=== PATIENT | female | born 1995 | race Hispanic/Latino ===

== ENCOUNTER 2021-06-15 08:42 | Outpatient (CLI) | payer BC ==
[2021-06-16 00:47] LABS: SARS-CoV-2 PCR by NAA Not Detected (NotDetected)
== END 2021-06-15 08:43 | disposition home or self-care (01) ==
LOC: CSHLAB 08:42
PROVIDERS: ATTEND Student in an Organized Health Care Education/Training Program
DX: Z20.822 Contact with and (suspected) exposure to COVID-19 (principal)
CPT/HCPCS: U0003; U0005

== ENCOUNTER 2021-06-16 19:30 | Inpatient (IN) | payer BC ==
[~2021-06-16 19:30] MED LIST: Bupivacaine 0.25% HCL 30 ML VIAL ONE; Bupivacaine 0.5% 10 ML VIAL ONE
[2021-06-16] MEDS ORDERED: Misoprostol 200 MCG TAB PR PRN (23:21)
[2021-06-16] MEDS ORDERED: Acetaminophen 500 MG TAB PO PRN (23:21)
[2021-06-16] MEDS ORDERED: Methylergonovine 0.2 MG/ML VIAL IM PRN (23:21)
[2021-06-16] MEDS ORDERED: NS w/ Oxytocin 30 units 500 ML IV SCH ×2 (23:21)
[2021-06-16] MEDS ORDERED: hydrALAZINE 20 MG/ML VIAL SLOW IVP PRN (23:21)
[2021-06-16] MEDS ORDERED: Lidocaine 1% (PF) 30 ML VIAL SC PRN (23:21)
[2021-06-16] MEDS ORDERED: Carboprost 250 MCG/ML AMP IM PRN (23:21)
[2021-06-16] MEDS ORDERED: Lactated Ringer's 1,000 ML IV SCH (23:21)
[2021-06-16] MEDS ORDERED: Ibuprofen 800 MG TAB PO PRN (23:21)
[2021-06-16] MEDS ORDERED: HYDROcodone/Acetaminophen 5/325 mg Tablet PO PRN (23:21)
[2021-06-16] MEDS ORDERED: Ondansetron PF 4 MG/2 ML Vial IVP PRN (23:21)
[2021-06-16] MEDS ORDERED: Fentanyl 100 MCG/2 ML VIAL SLOW IVP PRN (23:21)
[2021-06-16] MEDS ORDERED: Diphenoxylate HCl/Atropine Tablet PO PRN (23:21)
[2021-06-16] MEDS ORDERED: Promethazine HCl 25 MG/ML VIAL IM PRN (23:21)
[2021-06-17] MEDS ORDERED: Misoprostol 100 MCG TAB ONE (00:53)
[2021-06-17 00:59] VITALS: BMI 28.1
[2021-06-17] MEDS: Misoprostol 100 MCG TAB VAG SCH (01:07)
[2021-06-17 01:16] LABS: Hemoglobin 13.2 g/dL (12.0-15.5); Mean Corpuscular HGB CONC 35.3 g/dL (32.0-36.0); Mean Corpuscular Hemoglobin 31.3 pg (27.0-33.0); Mean Corpuscular Volume 88.6 fl (81.6-98.3); Mean Platelet Volume 9.7 fl (7.4-10.4); Platelet Count 275 10x3/uL (150-450); RBC Distribution Width 12.5 % (11.5-14.5); Red Blood Cell (RBC) Count 4.22 10x6/uL (3.90-5.03); White Blood Cell (WBC) Count 10.1 10x3/uL (3.5-10.5)
[2021-06-17 01:50] LABS: Syphilis Antibody Nonreactive (Nonreactive); Syphilis Antibody Index 0.04 S/CO (<1.00 Non-Reactive)
[2021-06-17 01:52] LABS: Hep B Surf Ag Non-Reactive S/CO (NonReactive)
[2021-06-17 02:27] LABS: HBSAg Index 0.17 S/CO (0-0.99)
[2021-06-17] MEDS ORDERED: Fentanyl 2 mcg/Bup 0.1% Cadd 100 ML ONE (07:58)
[2021-06-17] MEDS ORDERED: Naloxone HCl 0.4 mg/ml Vial IVP PRN ×2 (09:08)
[2021-06-17] MEDS ORDERED: Acetaminophen 325 MG TAB PO PRN (09:08)
[2021-06-17] MEDS ORDERED: Moisturizing Cream (Eucerin) 113 GM JAR TOP PRN (09:08)
[2021-06-17] MEDS ORDERED: ePHEDrine Sulfate 50 MG/10 ML VIAL SLOW IVP PRN (09:08)
[2021-06-17] MEDS ORDERED: diphenhydrAMINE 50 MG/ML VIAL IVP PRN (09:08)
[2021-06-17] MEDS ORDERED: Lactated Ringer's 500 ML IV PRN (09:08)
[2021-06-17] MEDS ORDERED: Promethazine HCl 25 MG/ML VIAL IM PRN ×2 (09:08→17:48)
[2021-06-17] MEDS ORDERED: Ondansetron PF 4 MG/2 ML Vial IVP PRN ×2 (09:08→17:48)
[2021-06-17] MEDS ORDERED: Communication Order-Pharmacy FS SCH (09:15)
[2021-06-17] MEDS ORDERED: Fentanyl 2 mcg/Bupivacaine 0.1% Cassette 100 ML EPIDURAL SCH (09:15)
[2021-06-17] MEDS ORDERED: Lidocaine 1% (PF) 30 ML VIAL ONE ×4 (16:07→16:11)
[2021-06-17] MEDS ORDERED: Tranexamic Acid 1,000 MG/10 ML VIAL ONE ×2 (16:44→18:20)
[2021-06-17] MEDS ORDERED: Carboprost 250 MCG/ML AMP ONE (17:09)
[2021-06-17] MEDS ORDERED: Benzocaine-Menthol 82.5 ML CAN TOP PRN (17:48)
[2021-06-17] MEDS ORDERED: Lanolin Ointment 7 GM TUBE TOP PRN (17:48)
[2021-06-17] MEDS ORDERED: Preparation H Ointment 28 GM TUBE PR PRN (17:48)
[2021-06-17] MEDS ORDERED: diphenhydrAMINE 25 MG CAP PO PRN (17:48)
[2021-06-17] MEDS ORDERED: NS w/ Oxytocin 30 units 500 ML IV SCH (17:48)
[2021-06-17] MEDS ORDERED: Bisacodyl 10 MG SUPP PR PRN (17:48)
[2021-06-17] MEDS ORDERED: hydrALAZINE 20 MG/ML VIAL SLOW IVP PRN (17:48)
[2021-06-17] MEDS ORDERED: Boostrix 0.5 ML (Tdap) VIAL IM ONE (17:48)
[2021-06-17] MEDS ORDERED: Fentanyl 100 MCG/2 ML VIAL SLOW IVP PRN (17:48)
[2021-06-17] MEDS ORDERED: HYDROcodone/Acetaminophen 5/325 mg Tablet PO PRN (17:48)
[2021-06-17] MEDS ORDERED: Milk Of Magnesia 30 ML UDCUP PO PRN (17:48)
[2021-06-17 18:44] LABS: Hemoglobin 12.7 g/dL (12.0-15.5)
[2021-06-17] MEDS ORDERED: Diphenoxylate HCl/Atropine Tablet PO SCH (18:45)
[2021-06-17 18:58] LABS: D-Dimer Test 4.54 mg/L FEU (0.19-0.50); INR-International Normal Ratio 0.9; Prothrombin Time 9.8 sec (9.5-12.1)
[2021-06-17] MEDS: Methylergonovine 0.2 MG TAB PO SCH (19:32)
[2021-06-17] MEDS: Ibuprofen 800 MG TAB PO SCH (21:03)
[2021-06-17] MEDS: ceFAZolin Sodium/D5W 2 GM in Premix Bag 1 BAG IVPB SCH (22:24)
[2021-06-18] MEDS: Methylergonovine 0.2 MG TAB PO SCH ×3 (01:05→20:48)
[2021-06-18] MEDS: Docusate 100 MG CAP PO SCH ×3 (02:56→21:37)
[2021-06-18] MEDS: Tranexamic Acid 1,000 MG in Sodium Chloride 0.9% 100 ML IVPB SCH ×3 (02:59→20:48)
[2021-06-18] MEDS: HYDROcodone/Acetaminophen 5/325 mg Tablet PO PRN ×3 (04:03→17:28)
[2021-06-18 05:52] LABS: Hemoglobin 11.2 g/dL (12.0-15.5); Mean Corpuscular Hemoglobin 31.2 pg (27.0-33.0); Mean Corpuscular Volume 89.1 fl (81.6-98.3); Mean Platelet Volume 9.8 fl (7.4-10.4); Platelet Count 225 10x3/uL (150-450); RBC Distribution Width 12.5 % (11.5-14.5); Red Blood Cell (RBC) Count 3.59 10x6/uL (3.90-5.03); White Blood Cell (WBC) Count 17.5 10x3/uL (3.5-10.5)
[2021-06-18] MEDS: Ibuprofen 800 MG TAB PO SCH ×4 (06:21→21:38)
[2021-06-18] MEDS: ceFAZolin Sodium/D5W 2 GM in Premix Bag 1 BAG IVPB SCH ×2 (06:22→20:48)
[2021-06-18] MEDS ORDERED: Butorphanol Tartrate 1 MG/ML VIAL ONE (06:25)
[2021-06-18] MEDS: Prenatal Vitamin 1 TAB PO SCH (15:30)
[2021-06-18] MEDS: Ferrous Sulfate 325 MG TAB PO SCH ×2 (15:30→17:30)
[2021-06-18] MEDS: Misoprostol 100 MCG TAB VAG SCH (20:47)
[2021-06-19 05:07] LABS: Hemoglobin 9.9 g/dL (12.0-15.5); Mean Corpuscular HGB CONC 33.8 g/dL (32.0-36.0); Mean Corpuscular Hemoglobin 31.1 pg (27.0-33.0); Mean Corpuscular Volume 92.1 fl (81.6-98.3); Mean Platelet Volume 9.6 fl (7.4-10.4); Platelet Count 242 10x3/uL (150-450); RBC Distribution Width 12.6 % (11.5-14.5); Red Blood Cell (RBC) Count 3.18 10x6/uL (3.90-5.03)
[2021-06-19] MEDS: Ibuprofen 800 MG TAB PO SCH (06:02)
[2021-06-19] MEDS: Prenatal Vitamin 1 TAB PO SCH (08:42)
[2021-06-19] MEDS: Docusate 100 MG CAP PO SCH (08:42)
[2021-06-19] MEDS: Ferrous Sulfate 325 MG TAB PO SCH (08:42)
[2021-06-19 09:23] VITALS: BP 98/55; TEMP 97.8
== END 2021-06-19 13:50 | disposition home or self-care (01) | DRG 768 ==
LOC: CSHLD 20:50 → CSHPP 06-18 15:10
PROVIDERS: ADMIT Student in an Organized Health Care Education/Training Program; ATTEND Student in an Organized Health Care Education/Training Program
PROC: 10E0XZZ Delivery of Products of Conception, External Approach (ICD-10-PCS; principal; 2021-06-17)
PROC: 0W3R7ZZ Control Bleeding in Genitourinary Tract, Via Natural or Artificial Opening (ICD-10-PCS; 2021-06-17)
PROC: 0KQM0ZZ Repair Perineum Muscle, Open Approach (ICD-10-PCS; 2021-06-17)
PROC: 10907ZC Drainage of Amniotic Fluid, Therapeutic from Products of Conception, Via Natural or Artificial Opening (ICD-10-PCS; 2021-06-17)
PROC: 3E0P7VZ Introduction of Hormone into Female Reproductive, Via Natural or Artificial Opening (ICD-10-PCS; 2021-06-17)
DX: O70.1 Second degree perineal laceration during delivery (principal); Z37.0 Single live birth; O72.1 Other immediate postpartum hemorrhage; Z3A.40 40 weeks gestation of pregnancy; Z79.899 Other long term (current) drug therapy
CPT/HCPCS: 36415; 51702; 85027; 85049; 85300; 85362; 85379; 85384; 85610; 85730; 86780; 86850; 86900; 86901; 87340; J2001; J2210; J2405; J2590; J3010; J3490; S0020